=== PATIENT | male | born 1985 | race American Indian/Alaskan Native ===

== ENCOUNTER 2019-03-31 13:06 | Emergency (ER) | payer BC ==
--- NOTE | 2019-03-31 13:45 | Emergency Department Report ---
Blank Doc - Documentation Documentation: 33 y/o male comes in for left pinky pain.
--- NOTE | 2019-03-31 14:30 | XRay Report ---
Left 10th series with attention to fifth finger: History: Finger pain. Findings: Mild deformity noted of the distal interphalangeal joint fifth finger. There is no acute fracture or dislocation noted. Deformity may be related to tendon injury. Impression: No evidence of acute fracture.
[2019-03-31] MEDS ORDERED: NORCO 5/325 PO STA (17:18)
--- NOTE | 2019-03-31 17:24 | Emergency Department Report ---
ED Upper Extremity Inj HPI - General Chief Complaint: Extremity Injury, Upper Stated Complaint: LFT FINGER INJURY/PAIN Time Seen by Provider: 03/31/19 17:13 Source: patient Mode of arrival: Ambulatory Limitations: No Limitations - History of Present Illness MD Complaint: Injury to:: left, hand, finger -: Sudden Other Extremity Injury: Fingers: Left (5th digit deforimity to distal aspect) Handedness: right Improves With: none Worsens With: none Context: direct blow (hit on a piece of furniturew) Associated Symptoms: other (pain and decrease rom to distal finger. ) - Related Data Previous Rx's Medication Instructions Recorded Last Taken Type Ketorolac [Toradol] 10 mg PO Q6H PRN #10 tablet 03/31/19 Unknown Rx Allergies Allergy/AdvReac Type Severity Reaction Status Date / Time Penicillins Allergy Swelling Verified 03/31/19 13:46 ED Review of Systems ROS: Stated complaint: LFT FINGER INJURY/PAIN Other details as noted in HPI Constitutional: denies: chills, fever Eyes: denies: eye pain, eye discharge, vision change ENT: denies: ear pain, throat pain Respiratory: denies: cough, shortness of breath, wheezing Cardiovascular: denies: chest pain, palpitations Endocrine: no symptoms reported Gastrointestinal: denies: abdominal pain, nausea, diarrhea Genitourinary: denies: urgency, dysuria Musculoskeletal: denies: back pain, joint swelling, arthralgia Skin: denies: rash, lesions Neurological: denies: headache, weakness, paresthesias Psychiatric: denies: anxiety, depression Hematological/Lymphatic: denies: easy bleeding, easy bruising ED Past Medical Hx - Past Medical History Previous Medical History?: No - Surgical History Past Surgical History?: No - Social History Smoking Status: Never Smoker Substance Use Type: None - Medications Home Medications: Home Medications Medication Instructions Recorded Confirmed Last Taken Type Ketorolac [Toradol] 10 mg PO Q6H PRN #10 tablet 03/31/19 Unknown Rx ED Physical Exam - General Limitations: No Limitations General appearance: alert, in no apparent distress - Head Head exam: Present: atraumatic, normocephalic - Eye Eye exam: Present: normal appearance, PERRL, EOMI Pupils: Present: normal accommodation - ENT ENT exam: Present: mucous membranes moist - Neck Neck exam: Present: normal inspection, full ROM - Respiratory Respiratory exam: Present: normal lung sounds bilaterally. Absent: respiratory distress, wheezes, rales, rhonchi - Cardiovascular Cardiovascular Exam: Present: regular rate, normal rhythm. Absent: systolic murmur, diastolic murmur, rubs, gallop - GI/Abdominal GI/Abdominal exam: Present: soft, normal bowel sounds - Rectal Rectal exam: Present: deferred - Extremities Exam Extremities exam: Present: normal inspection, full ROM, tenderness, normal capillary refill, other (distal DIP of 5th phalnangeno rom noted on extension. normal flexion. no bleeding. cap refill brisk. no rom to DIP. ) - Back Exam Back exam: Present: normal inspection, full ROM. Absent: CVA tenderness (R), CVA tenderness (L), muscle spasm, paraspinal tenderness - Neurological Exam Neurological exam: Present: alert, oriented X3, CN II-XII intact, normal gait - Psychiatric Psychiatric exam: Present: normal affect, normal mood - Skin Skin exam: Present: warm, dry, intact, normal color. Absent: rash, cyanosis, diaphoretic, erythema, urticaria, pallor, abrasion ED Course Vital Signs 03/31/19 13:44 Temperature 98.8 F Pulse Rate 84 Respiratory 16 Rate Blood Pressure 148/74 O2 Sat by Pulse 98 Oximetry ED Medical Decision Making - Radiology Data Radiology results: report reviewed (No fracture or dislocaton. defromity of distal phalnage noted sugestive of tendon injuiry. ) Critical care attestation.: If time is entered above; I have spent that time in minutes in the direct care of this critically ill patient, excluding procedure time. ED Disposition Clinical Impression: Mallet finger of left hand Disposition: DC-01 TO HOME OR SELFCARE Is pt being admited?: No Does the pt Need Aspirin: No Condition: Stable Instructions: Jammed Finger (ED) Prescriptions: Ketorolac [Toradol] 10 mg PO Q6H PRN #10 tablet PRN Reason: Pain Referrals: DHRUV GRIFFIN MD [Primary Care Provider] - 3-5 Days VAZQUEZ URBANO MD [Staff Physician] - 3-5 Days
[2019-03-31 18:02] VITALS: BP 162/70
== END 2019-03-31 18:02 | disposition home or self-care (01) ==
LOC: ED 13:06
DX: M20.012 Mallet finger of left finger(s) (principal); Z88.0 Allergy status to penicillin
CPT/HCPCS: 99283

== ENCOUNTER 2019-12-19 09:14 | Emergency (ER) | payer SELFPAY ==
[2019-12-19 09:21] VITALS: BP 148/96
[2019-12-19] MEDS ORDERED: TETRACAINE 0.5% OPHTH SOLN 4ML OU ONE (11:24)
[2019-12-19] MEDS ORDERED: FLUORESCEIN 1 MG STRIP OP ONE (11:24)
--- NOTE | 2019-12-19 11:55 | Emergency Department Report ---
ED General Adult HPI - General Chief complaint: Eye Problems Stated complaint: RT EYE IRRIATATION Time Seen by Provider: 12/19/19 10:18 Source: patient Mode of arrival: Ambulatory Limitations: No Limitations - History of Present Illness Initial comments: The patient presents to the emergency department with a chief complaint of right eye pain. Patient states that pain started 2 days ago. She denies any problems with his vision. Patient describes the pain as a burning sensation. -: Sudden Location: eyes Radiation: non-radiation Severity scale (0 -10): 5 Quality: other (burning) Improves with: none Worsens with: none Associated Symptoms: denies other symptoms Treatments Prior to Arrival: none - Related Data Previous Rx's Medication Instructions Recorded Last Taken Type Ketorolac [Toradol] 10 mg PO Q6H PRN #10 tablet 03/31/19 Unknown Rx Erythromycin [Erythromycin Ophth 10 applic OP TID #1 tube 12/19/19 Unknown Rx Oint] Naproxen [Naprosyn] 500 mg PO BID PRN #20 tablet 12/19/19 Unknown Rx Allergies Allergy/AdvReac Type Severity Reaction Status Date / Time Penicillins Allergy Swelling Verified 03/31/19 13:46 ED Review of Systems ROS: Stated complaint: RT EYE IRRIATATION Other details as noted in HPI Constitutional: denies: chills, fever Eyes: eye pain. denies: eye discharge, vision change ENT: denies: ear pain, throat pain Respiratory: denies: cough, shortness of breath, wheezing Cardiovascular: denies: chest pain, palpitations Endocrine: no symptoms reported Gastrointestinal: denies: abdominal pain, nausea, diarrhea Genitourinary: denies: urgency, dysuria Musculoskeletal: denies: back pain, joint swelling, arthralgia Skin: denies: rash, lesions Neurological: denies: headache, weakness, paresthesias Psychiatric: denies: anxiety, depression Hematological/Lymphatic: denies: easy bleeding, easy bruising ED Past Medical Hx - Past Medical History Previous Medical History?: No - Surgical History Past Surgical History?: No - Social History Smoking Status: Never Smoker Substance Use Type: None - Medications Home Medications: Home Medications Medication Instructions Recorded Confirmed Last Taken Type Ketorolac [Toradol] 10 mg PO Q6H PRN #10 tablet 03/31/19 Unknown Rx Erythromycin [Erythromycin Ophth 10 applic OP TID #1 tube 12/19/19 Unknown Rx Oint] Naproxen [Naprosyn] 500 mg PO BID PRN #20 tablet 12/19/19 Unknown Rx ED Physical Exam - General Limitations: No Limitations General appearance: alert, in no apparent distress - Head Head exam: Present: atraumatic, normocephalic - Eye Eye exam: Present: other (was lamp exam of the right eye shows corneal abrasion across the pupil) - ENT ENT exam: Present: mucous membranes moist - Neck Neck exam: Present: normal inspection - Respiratory Respiratory exam: Present: normal lung sounds bilaterally. Absent: respiratory distress - Cardiovascular Cardiovascular Exam: Present: regular rate, normal rhythm. Absent: systolic murmur, diastolic murmur, rubs, gallop - Rectal Rectal exam: Present: deferred - Extremities Exam Extremities exam: Present: normal inspection - Back Exam Back exam: Present: normal inspection - Neurological Exam Neurological exam: Present: alert, oriented X3, CN II-XII intact. Absent: motor sensory deficit - Psychiatric Psychiatric exam: Present: normal affect, normal mood - Skin Skin exam: Present: warm, dry, intact, normal color. Absent: rash ED Course Vital Signs 12/19/19 09:18 Temperature 98.6 F Pulse Rate 81 Respiratory 16 Rate Blood Pressure 148/96 O2 Sat by Pulse 98 Oximetry ED Medical Decision Making - Medical Decision Making Plan of care discussed with patient Critical care attestation.: If time is entered above; I have spent that time in minutes in the direct care of this critically ill patient, excluding procedure time. ED Disposition Clinical Impression: Corneal abrasion Disposition: - TO HOME OR SELFCARE Is pt being admited?: No Does the pt Need Aspirin: No Condition: Stable Instructions: Corneal Abrasion (ED) Additional Instructions: return if worse Prescriptions: Erythromycin [Erythromycin Ophth Oint] 10 applic OP TID #1 tube Naproxen [Naprosyn] 500 mg PO BID PRN #20 tablet PRN Reason: pain Referrals: [facility],MD [Primary Care Provider] - 3-5 Days [facility] [Provider Group] - 3-5 Days [facility] [Provider Group] - 3-5 Days Forms: Work/School Release Form(ED) Time of Disposition: 11:57
== END 2019-12-19 12:09 | disposition home or self-care (01) ==
LOC: ED 09:14
DX: S05.01XA Injury of conjunctiva and corneal abrasion without foreign body, right eye, initial encounter (principal); Z79.899 Other long term (current) drug therapy; Z88.0 Allergy status to penicillin; X58.XXXA Exposure to other specified factors, initial encounter; Y93.89 Activity, other specified; Y92.89 Other specified places as the place of occurrence of the external cause; Y99.8 Other external cause status